=== PATIENT | female | born 1990 | race Two or more races ===

== ENCOUNTER 2018-03-06 13:51 | Emergency (ER) | payer MEDICARE ==
[~2018-03-06] VITALS: Ht 157.5 cm; Wt 58.0 kg
[2018-03-06 13:55] VITALS: BP 138/92
[2018-03-06 14:16] LABS: MICROSCOPIC NOT IND
[2018-03-06 14:30] LABS: CULTURE INDICATED? NO
== END 2018-03-06 15:10 | disposition home or self-care (01) ==
LOC: ED 15:04
DX: N92.6 Irregular menstruation, unspecified (principal)
CPT/HCPCS: 81003; 81025; 99284

== ENCOUNTER 2018-08-18 14:39 | Emergency (ER) | payer MEDICARE, OTHER ==
[~2018-08-18] VITALS: Ht 157.5 cm; Wt 59.0 kg
[2018-08-18 15:42] LABS: CULTURE INDICATED? YES; MICROSCOPIC INDICATED
[2018-08-18 15:43] LABS: HCG UR SG > 1.034 (1.003-1.030)
[2018-08-18] MEDS ORDERED: LORazepam 1MG TABLET PO ONE (16:00)
[2018-08-18] MEDS ORDERED: SODIUM CHLORIDE 0.9% 1,000ML IVBOLUS ONE (16:00)
[2018-08-18] MEDS ORDERED: LORazepam 1MG TABLET ONE (16:28)
[2018-08-18 16:40] LABS: MEAN CORPUSCULAR HEMOGLOBIN 31.3 pg (27.0-34.8); MEAN CORPUSCULAR HGB CONC 34.5 g/dL (32.4-35.8); MEAN CORPUSCULAR VOLUME 90.8 fL (80-100); MEAN PLATELET VOLUME 7.8 fL (7.4-10.4); PLATELET COUNT 510 x10^3/uL (130-400); RED BLOOD COUNT 4.62 x10^6/uL (3.82-5.3); RED CELL DISTRIBUTION WIDTH 13.6 % (9.6-15.2)
[2018-08-18 16:51] LABS: ALBUMIN 4.3 g/dL (3.4-5.0); ANION GAP 12 mmol/L (5-15); CALCIUM 9.3 mg/dL (8.5-10.1); CHLORIDE 101 mmol/L (98-107); CREATININE 0.73 mg/dL (0.55-1.02)
[2018-08-18 17:35] LABS: BASOPHILS # (AUTO) 0.06 x10^3/uL (0-0.1); BASOPHILS % (AUTO) 0 % (0-1); EOSINOPHILS # (AUTO) 0.04 x10^3/uL (0-0.4); EOSINOPHILS % (AUTO) 0 % (1-7); LYMPHOCYTES # (AUTO) 2.97 x10^3/uL (1-3.4); LYMPHOCYTES % (AUTO) 16 % (22-44); MD SCAN; MONOCYTES # (AUTO) 0.97 x10^3/uL (0.2-0.8); MONOCYTES % (AUTO) 5 % (2-9); NEUTROPHILS % (AUTO) 78 % (42-75)
[2018-08-18 19:00] VITALS: BP 116/73
== END 2018-08-18 19:02 | disposition home or self-care (01) ==
LOC: ED 16:18
DX: R10.84 Generalized abdominal pain (principal); F15.10 Other stimulant abuse, uncomplicated; D72.829 Elevated white blood cell count, unspecified; G40.909 Epilepsy, unspecified, not intractable, without status epilepticus
CPT/HCPCS: 36415; 74018; 74177; 80048; 81001; 81025; 82040; 85025; 87040; 87086; 99285; J7030

== ENCOUNTER 2018-11-29 20:23 | Observation (INO) | payer MEDICARE, OTHER ==
[~2018-11-29] VITALS: Ht 158.8 cm; Wt 57.7 kg
--- NOTE | 2018-11-29 20:42 | NUR ---
PT BELONGINGS AT NURSES STATION, PT SITTING IN VIEW OF RN. AWAITING ROOM
--- NOTE | 2018-11-29 20:53 | NUR ---
PT TO XRAY WITH STEADY GAIT
[2018-11-29 20:55] LABS: BASOPHILS # (AUTO) 0.07 x10^3/uL (0-0.1); BASOPHILS % (AUTO) 0 % (0-1); EOSINOPHILS % (AUTO) 0 % (1-7); LYMPHOCYTES # (AUTO) 2.47 x10^3/uL (1-3.4); LYMPHOCYTES % (AUTO) 14 % (22-44); MD NO; MEAN CORPUSCULAR HEMOGLOBIN 29.8 pg (27.0-34.8); MEAN CORPUSCULAR HGB CONC 33.8 g/dL (32.4-35.8); MEAN CORPUSCULAR VOLUME 88.1 fL (80-100); MEAN PLATELET VOLUME 7.5 fL (7.4-10.4); MONOCYTES % (AUTO) 5 % (2-9); NEUTROPHILS # (AUTO) 14.46 x10^3/uL (1.8-6.8); NEUTROPHILS % (AUTO) 81 % (42-75); PLATELET COUNT 397 x10^3/uL (130-400); RED CELL DISTRIBUTION WIDTH 14.1 % (9.6-15.2)
[2018-11-29 21:08] LABS: ALANINE AMINOTRANSFERASE 33 U/L (12-78); ALBUMIN 4.6 g/dL (3.4-5.0); ANION GAP 12 mmol/L (5-15); CALCIUM 9.3 mg/dL (8.5-10.1); CHLORIDE 100 mmol/L (98-107)
[2018-11-29 21:10] LABS: SALICYLATE LEVEL < 1.7 mg/dL (2.8-20.0)
[2018-11-29 21:11] LABS: ALKALINE PHOSPHATASE 88 U/L (45-117); BILIRUBIN,TOTAL 0.8 mg/dL (0.2-1.0); CREATININE 0.75 mg/dL (0.55-1.02); TOTAL PROTEIN 8.8 g/dL (6.4-8.2)
[2018-11-29 21:13] LABS: ACETAMINOPHEN < 2 mcg/mL (10-30)
--- NOTE | 2018-11-29 21:50 | NUR ---
PT TO ROOM, UNDRESSED, ALL BELONGINGS BAGGED AND TAGGED. INFORMED PT OF PLAN OF CARE. PT TEARFUL AND COOPERATIVE. STATED HER PLAN IS TO OD ON METHADONE PILLS LIKE HER BROTHER DID. PT GIVEN UNDERWEAR AND SOCKS AND CUP FOR URINE COLLECTION. BILAT GARAGE DOORS DOWN.
[2018-11-29] MEDS ORDERED: DIPH,PERTUSS(ACELL),TET VAC/PF NC IM-VACC ONE (22:00)
[2018-11-29 22:36] LABS: AMPHETAMINE SCREEN, URINE Positive (Negative); BARBITURATE SCREEN, URINE Negative (Negative); BENZODIAZEPINE SCREEN, URINE Negative (Negative); CANNABINOID SCREEN, URINE Positive (Negative); COCAINE SCREEN, URINE Negative (Negative); METHADONE SCREEN, URINE Negative (Negative); OPIATE SCREEN, URINE Negative (Negative)
[2018-11-29] MEDS ORDERED: DIPH,PERTUSS(ACELL),TET VAC/PF 0.5 ML IM-VACC ONE (22:50)
--- NOTE | 2018-11-29 22:55 | NUR ---
URINE SENT TO LAB. CALL LIGHT WITHIN REACH. PT GIVEN FOOD AND WATER PER ERP OKAY. SITTER AT DOOR. WILL CONTINUE TO MONITOR.
--- NOTE | 2018-11-29 23:09 | NUR ---
PT RESTING CALMLY IN BED. NO STATED NEEDS AT THIS TIME. PT CALMLY WATCHING TV. WILL CONTINUE TO MONITOR.
[2018-11-29 23:46] LABS: CULTURE INDICATED? YES; MICROSCOPIC INDICATED
[2018-11-30] MEDS ORDERED: CIPROFLOXACIN 500 MG TABLET PO ONE
--- NOTE | 2018-11-30 00:10 | NUR ---
PT RESTING IN BED. PT TO BE ADMITTED. PT AWARE OF THIS. WILL CONTINUE TO MONITOR.
[2018-11-30] MEDS ORDERED: ONDANSETRON ODT 4 MG PO PRN (01:00)
[2018-11-30] MEDS ORDERED: DOCUSATE 100 MG CAPSULE PO PRN (01:00)
[2018-11-30] MEDS ORDERED: ACETAMINOPHEN 325 MG TABLET PO PRN (01:00)
[2018-11-30] MEDS ORDERED: CIPROFLOXACIN 500 MG TABLET ONE ×2 (01:18→08:51)
--- NOTE | 2018-11-30 01:34 | NUR ---
PT RESTING IN BED
--- NOTE | 2018-11-30 02:12 | NUR ---
PT GIVEN SANDWICH AND MEDICATED PER EMAR. SITER AT DOOR FOR OBS.
--- NOTE | 2018-11-30 03:32 | NUR ---
PT RESTING IN BED WITH EYES CLOSED. SITTER WATCHING PT. WILL CONTINUE TO MONITOR.
--- NOTE | 2018-11-30 04:12 | NUR ---
PT RESTING CALMLY IN BED WITH EYES CLOSED AND EVEN RESPS. SITTER OBSERVING PT. NO STATED NEEDS. WILL CONTINUE TO MONITOR.
--- NOTE | 2018-11-30 05:49 | NUR ---
PT RESTING IN BED WITH EYES CLOSED LAYING ON HER BELLY IN [facility]. SITTER WATCHING PT.
--- NOTE | 2018-11-30 06:55 | NUR ---
received bedside report from MIR Pringle. PT SLEEPING ON GURNEY. NO ACUTE DISTRESS NOTED. RESPS EQUAL AND UNLABORED. ALL SAFETY MEAUSURES OBTAINED.
--- NOTE | 2018-11-30 06:57 | NUR ---
BEDSIDE REPOT GIVEN TO ROULA HESTER. PT RESTING IN BED CALMLY WITH EYES CLOSED. SITTER OBSERVING PT.
--- NOTE | 2018-11-30 07:37 | NUR ---
PT AWAKE. PT TEARFUL AND STATES "I'M VERY DEPRESSED. I DON'T WANT TO HURT MYSELF THOUGH." ALL SAFETY MEASURES OBTAINED. PT REQUESTING DIET TRAY. NO OTHER NEEDS AT THIS TIME.
--- NOTE | 2018-11-30 07:47 | NUR ---
PACKET FAXED TO [facility]
--- NOTE | 2018-11-30 08:18 | NUR ---
DIET TRAY DELIVERED. ALL SAFETY MEASURES OBTAINED.
[2018-11-30] MEDS ORDERED: SODIUM CHLORIDE 0.9% 1,000ML IVBOLUS ONE (08:30)
--- NOTE | 2018-11-30 08:59 | NUR ---
PT CALM AND COOPERATIVE. PT GIVEN PRAVEEN CRACKERS AND PEANUT BUTTER. PT STATES "I AM ALWAYS THE ONE HELPING MY BOYFRIEND. AND HE JUST TELLS ME TO GET OUT SOMETIMES. I BOUGHT THE CAR AND WE LIVE IN IT. MY HOMEBOY IN THE [employer]ART[place] TOLD ME TO COME HERE FOR HELP." NO ACUTE DISTRESS NOTED. NO NEEDS REQUESTED AT THIS TIME. ALL SAFETY MEASURES OBTAINED.
[2018-11-30] MEDS ORDERED: CIPROFLOXACIN 500 MG TABLET PO SCH (09:00)
--- NOTE | 2018-11-30 10:17 | NUR ---
PT SLEEPING ON GURNEY. HOSP BED REQUESTED. NO ACUTE DISTRESS NOTED. RESPS EQUAL AND UNLABORED. ALL SAFETY MEASURES OBTAINED. WILL CONTINUE TO MONITOR.
--- NOTE | 2018-11-30 10:39 | NUR ---
PT TRANSFERRED TO HOSPITAL BED.
--- NOTE | 2018-11-30 11:49 | NUR ---
PIV ESTABLISHED, PT TOLERATED WITH NO COMPLICATIONS. HOSPITALIST BEDSIDE. NO ACUTE DISTRESS NOTED. ALL SAFETY MEASURES OBTAINED.
--- NOTE | 2018-11-30 12:18 | NUR ---
BREAK RN: LUNCH TRAY ORDERED. PT SITTING QUIETLY ON BED, LOOKING THROUGH HER NOTEBOOK. IV INFUSING
[2018-11-30 14:28] LABS: ALBUMIN 3.4 g/dL (3.4-5.0); ANION GAP 6 mmol/L (5-15); CALCIUM 8.4 mg/dL (8.5-10.1); CHLORIDE 106 mmol/L (98-107)
[2018-11-30 14:29] LABS: MEAN CORPUSCULAR HEMOGLOBIN 29.5 pg (27.0-34.8); MEAN CORPUSCULAR HGB CONC 33.5 g/dL (32.4-35.8); MEAN CORPUSCULAR VOLUME 88.2 fL (80-100); MEAN PLATELET VOLUME 7.7 fL (7.4-10.4); PLATELET COUNT 327 x10^3/uL (130-400); RED BLOOD COUNT 4.42 x10^6/uL (3.82-5.3); RED CELL DISTRIBUTION WIDTH 13.9 % (9.6-15.2)
[2018-11-30 14:31] LABS: ALANINE AMINOTRANSFERASE 26 U/L (12-78); ALKALINE PHOSPHATASE 90 U/L (45-117); BILIRUBIN,TOTAL 0.5 mg/dL (0.2-1.0); TOTAL PROTEIN 6.7 g/dL (6.4-8.2)
[2018-11-30 15:17] LABS: BASOPHILS # (AUTO) 0.04 x10^3/uL (0-0.1); BASOPHILS % (AUTO) 1 % (0-1); EOSINOPHILS # (AUTO) 0.06 x10^3/uL (0-0.4); EOSINOPHILS % (AUTO) 1 % (1-7); LYMPHOCYTES # (AUTO) 1.95 x10^3/uL (1-3.4); LYMPHOCYTES % (AUTO) 25 % (22-44); MONOCYTES # (AUTO) 0.51 x10^3/uL (0.2-0.8); MONOCYTES % (AUTO) 7 % (2-9); NEUTROPHILS # (AUTO) 5.28 x10^3/uL (1.8-6.8); NEUTROPHILS % (AUTO) 67 % (42-75)
[2018-11-30 15:18] LABS: MD SCAN
--- NOTE | 2018-11-30 15:19 | NUR ---
SPOKE WITH IRAM BURCH, PER PT IT'S OK TO GIVE HIM INFORMATION. MR. BURCH STATES "THANK YOU FOR EVERYTHING. I'M GLAD SHE'S THERE, SHE NEEDS TO BE." PERMISSION FROM PT TO GIVE HIM INFORMATION. [phone]
--- NOTE | 2018-11-30 15:41 | NUR ---
report to MIR Britt. all questions answered
--- NOTE | 2018-11-30 15:50 | NUR ---
PT TRANSFERRED TO . PT LEFT WITH BLACK BACK PACK AND PERSONAL BELONGINGS BAG. ALL PERSONAL BELONGINGS TAKEN WITH PT
[2018-11-30 16:19] VITALS: BP 110/68
[2018-11-30 19:52] VITALS: BP 104/55
[2018-11-30] MEDS ORDERED: CIPROFLOXACIN 250 MG TABLET PO SCH (21:00)
== END 2018-11-30 20:22 ==
LOC: ED 23:12 → EDIP 11-30 00:03 → 2N 11-30 15:53
PROVIDERS: ADMIT Internal Medicine; ATTEND Internal Medicine
DX: R45.851 Suicidal ideations (principal); F12.10 Cannabis abuse, uncomplicated; F15.10 Other stimulant abuse, uncomplicated; F19.94 Other psychoactive substance use, unspecified with psychoactive substance-induced mood disorder; G40.909 Epilepsy, unspecified, not intractable, without status epilepticus; N30.90 Cystitis, unspecified without hematuria; Z82.0 Family history of epilepsy and other diseases of the nervous system; Z91.5 Personal history of self-harm; Z23 Encounter for immunization
CPT/HCPCS: 36415; 71045; 80053; 80307; 80329; 81001; 83690; 84703; 85025; 87086; 90471; 90715; 93005; 99284; G0378; J7030; G0480

== ENCOUNTER 2019-08-13 12:36 | Emergency (ER) | payer MEDICAID ==
[~2019-08-13] VITALS: Ht 157.5 cm; Wt 56.0 kg
[2019-08-13 12:57] VITALS: BP 93/54
--- NOTE | 2019-08-13 14:09 | NUR ---
pt to room from lobby
[2019-08-13] MEDS ORDERED: NEOSPORIN OINT. PKT 1 PACKET ONE (15:03)
--- NOTE | 2019-08-13 15:13 | NUR ---
WOUND DRESSED, NEOSPORIN APPLIED PER EDPA'S ORDER. PT GIVEN DC INSTRUCTIONS AND SCRIPT. PT EDUCATED REGARING MUPORICIN RX. PT AMB TO DC DESK WITH STEADY GAIT.
[2019-08-13] MEDS ORDERED: NEOSPORIN OINT. PKT 1 PACKET TP ONE (15:30)
== END 2019-08-13 15:14 | disposition home or self-care (01) ==
LOC: ED 15:00
DX: Z48.01 Encounter for change or removal of surgical wound dressing (principal); G40.909 Epilepsy, unspecified, not intractable, without status epilepticus
CPT/HCPCS: 99283

== ENCOUNTER 2020-03-29 12:02 | Emergency (ER) | payer MEDICAID ==
[~2020-03-29] VITALS: Ht 160 cm; Wt 57.3 kg
[2020-03-29] MEDS ORDERED: DIPH,PERTUSS(ACELL),TET VAC/PF 0.5 ML IM-VACC ONE ×2 (12:52→13:00)
--- NOTE | 2020-03-29 12:56 | NUR ---
MEDICATIONS REQUESTED FROM PHARMACY.
[2020-03-29 13:00] VITALS: BP 123/78
[2020-03-29] MEDS ORDERED: MUPIROCIN OINT 2%, 1 GM APPL. TP ONE (13:00)
--- NOTE | 2020-03-29 13:29 | NUR ---
REPORT GIVEN TO CARTER HESTER.
== END 2020-03-29 13:38 | disposition home or self-care (01) ==
LOC: ED 12:51
DX: L03.115 Cellulitis of right lower limb (principal); L03.116 Cellulitis of left lower limb
CPT/HCPCS: 90471; 90715; 99283